=== PATIENT | female | born 1950 | race Caucasian/White ===

== ENCOUNTER → 2019-10-04 | Outpatient (REF) | payer MEDICARE, OTHER | LOC: M LAB LCGH 13:39 | PROVIDERS: ATTEND Nurse Practitioner Family | DX: C44.519 Basal cell carcinoma of skin of other part of trunk (principal) ==

== ENCOUNTER 2019-12-01 11:45 | Day surgery (SDC) | payer MEDICARE, BC, OTHER ==
[~2019-12-01] VITALS: Ht 167.6 cm; Wt 98.9 kg
[~2019-12-01 11:45] MED LIST: CALCTAB41 PO; CLAR10TA7 PO; ESTR1DIS TOP; FLUTISP; GNP1000T11 PO; IBUP-1022 PO; MYRB25TA PO; NON-325T5 PO; NS 1,000 ML IV ONE; OMEP-221 PO; PROP60CA PO; SUMA100T2 PO; VITA500C24 PO
[2019-12-01] MEDS ORDERED: fentaNYL 100 MCG/2 ML INJECTION (J3010) As Ordered ONE (12:18)
[2019-12-01] MEDS ORDERED: LIDOCAINE 2% INJ 100 MG/5 ML SDV (FOR ANES.) As Ordered ONE (12:18)
[2019-12-01] MEDS ORDERED: propofoL 200 MG/20 ML VIAL As Ordered ONE (12:18)
--- NOTE | 2019-12-01 13:22 | ROOR ---
Patient Name: Janie Cameron Procedure Date: 12/01/2019 1:08 PM Date of : 1950 Age: 69 Room: [facility] Gender: Female Note Status: Finalized Procedure: Upper GI endoscopy Indications: Suspected esophageal reflux Providers: Isaiah Smith Jr, MD Referring MD: Wendy Juarez NP Requesting Provider: Medicines: Propofol per Anesthesia Complications: No immediate complications. Procedure: Pre-Anesthesia Assessment: - Prior to the procedure, a History and Physical was performed, and patient medications and allergies were reviewed. The patient is competent. The risks and benefits of the procedure and the sedation options and risks were discussed with the patient. All questions were answered and informed consent was obtained. Patient identification and proposed procedure were verified by the physician and the nurse in the pre-procedure area and in the procedure room. Mental Status Examination: alert and oriented. Airway Examination: normal oropharyngeal airway and neck mobility. Respiratory Examination: clear to auscultation. CV Examination: normal. ASA Grade Assessment: II - A patient with mild systemic disease. After reviewing the risks and benefits, the patient was deemed in satisfactory condition to undergo the procedure. The anesthesia plan was to use moderate sedation / analgesia (conscious sedation). Immediately prior to administration of medications, the patient was re-assessed for adequacy to receive sedatives. The heart rate, respiratory rate, oxygen saturations, blood pressure, adequacy of pulmonary ventilation, and response to care were monitored throughout the procedure. The physical status of the patient was re-assessed after the procedure. The Endoscope was introduced through the mouth, and advanced to the second part of duodenum. The upper GI endoscopy was accomplished without difficulty. The patient tolerated the procedure well. Findings: The upper third of the esophagus, middle third of the esophagus and lower third of the esophagus were normal. The cardia, gastric fundus, gastric body, gastric antrum, prepyloric region of the stomach and pylorus were normal. The duodenal bulb, first portion of the duodenum and second portion of the duodenum were normal. A small hiatal hernia was present. Impression: - Normal upper third of esophagus, middle third of esophagus and lower third of esophagus. - Normal cardia, gastric fundus, gastric body, antrum, prepyloric region of the stomach and pylorus. - Normal duodenal bulb, first portion of the duodenum and second portion of the duodenum. - Small hiatal hernia. - No specimens collected. Recommendation: - Discharge patient to home (ambulatory). - Return to primary care physician as previously scheduled. Isaiah Smith MD Isaiah Smith Jr, MD 12/01/2019 1:22:04 PM Electronically signed by Isaiah Smith Jr, MD Number of Addenda: 0 Note Initiated On: 12/01/2019 1:08 PM Estimated Blood Loss: Estimated blood loss: none.
--- NOTE | 2019-12-01 13:41 | ROOR ---
Patient Name: Janie Cameron Procedure Date: 12/01/2019 1:09 PM Date of : 1950 Age: 69 Room: [facility] Gender: Female Note Status: Finalized Procedure: Colonoscopy Indications: Screening for colorectal malignant neoplasm Providers: Isaiah Smith Jr, MD Referring MD: Wendy Juarez NP Requesting Provider: Medicines: Propofol per Anesthesia Complications: No immediate complications. Procedure: Pre-Anesthesia Assessment: - Prior to the procedure, a History and Physical was performed, and patient medications and allergies were reviewed. The patient is competent. The risks and benefits of the procedure and the sedation options and risks were discussed with the patient. All questions were answered and informed consent was obtained. Patient identification and proposed procedure were verified by the physician and the nurse in the pre-procedure area and in the procedure room. Mental Status Examination: alert and oriented. Airway Examination: normal oropharyngeal airway and neck mobility. Respiratory Examination: clear to auscultation. CV Examination: normal. ASA Grade Assessment: II - A patient with mild systemic disease. After reviewing the risks and benefits, the patient was deemed in satisfactory condition to undergo the procedure. The anesthesia plan was to use moderate sedation / analgesia (conscious sedation). Immediately prior to administration of medications, the patient was re-assessed for adequacy to receive sedatives. The heart rate, respiratory rate, oxygen saturations, blood pressure, adequacy of pulmonary ventilation, and response to care were monitored throughout the procedure. The physical status of the patient was re-assessed after the procedure. The Colonoscope was introduced through the anus and advanced to the cecum, identified by appendiceal orifice and ileocecal valve. The colonoscopy was performed without difficulty. The patient tolerated the procedure well. The quality of the bowel preparation was adequate. Findings: Three polyps were found in the descending colon, transverse colon and ascending colon. The polyps were diminutive in size. These polyps were removed with a cold snare. Resection was complete, but the polyp tissue was only partially retrieved. Multiple small and large-mouthed diverticula were found in the sigmoid colon. Non-bleeding external and internal hemorrhoids were found during endoscopy. The hemorrhoids were Grade II (internal hemorrhoids that prolapse but reduce spontaneously) and Grade III (internal hemorrhoids that prolapse but require manual reduction). The recto-sigmoid colon, descending colon, cecum, appendiceal orifice and ileocecal valve appeared normal. Impression: - Three diminutive polyps in the descending colon, in the transverse colon and in the ascending colon, removed with a cold snare. Complete resection. Partial retrieval. - Diverticulosis in the sigmoid colon. - Non-bleeding external and internal hemorrhoids. - The recto-sigmoid colon, descending colon, cecum, appendiceal orifice and ileocecal valve are normal. Recommendation: - Discharge patient to home (ambulatory). - Repeat colonoscopy in 5 years for surveillance. Isaiah Smith MD Isaiah Smith Jr, MD 12/01/2019 1:41:15 PM Electronically signed by Isaiah Smith Jr, MD Number of Addenda: 0 Note Initiated On: 12/01/2019 1:09 PM Estimated Blood Loss: Estimated blood loss: none.
[2019-12-01 14:00] VITALS: BP 128/92
== END 2019-12-01 14:16 | disposition home or self-care (01) ==
LOC: M OPP 11:45
PROVIDERS: ATTEND Surgery
DX: Z12.11 Encounter for screening for malignant neoplasm of colon (principal); Z80.0 Family history of malignant neoplasm of digestive organs; D12.4 Benign neoplasm of descending colon; D12.3 Benign neoplasm of transverse colon; D12.2 Benign neoplasm of ascending colon; K64.2 Third degree hemorrhoids; K57.30 Diverticulosis of large intestine without perforation or abscess without bleeding; K44.9 Diaphragmatic hernia without obstruction or gangrene; K21.9 Gastro-esophageal reflux disease without esophagitis; Z90.49 Acquired absence of other specified parts of digestive tract; Z87.19 Personal history of other diseases of the digestive system; M19.90 Unspecified osteoarthritis, unspecified site; G43.909 Migraine, unspecified, not intractable, without status migrainosus; Z87.891 Personal history of nicotine dependence; Z88.5 Allergy status to narcotic agent; Z88.1 Allergy status to other antibiotic agents; Z88.0 Allergy status to penicillin; Z88.2 Allergy status to sulfonamides; Z79.899 Other long term (current) drug therapy
CPT/HCPCS: 43235; 45385; 88305; J3010

== ENCOUNTER → 2025-10-03 | Day surgery (SDC) | payer MEDICARE, BC ==
[~2025-10-03] VITALS: Ht 167.6 cm; Wt 93.1 kg
[~2025-10-03] MED LIST changes: +ACET-839 PO; +ACET32TAB PO; +BACL10TA2 PO; +GABA-1171 PO; +GLYCOPYRROLATE INJ 0.2 MG/ML 2 ML VIAL As Ordered ONE; -IBUP-1022 PO; +IBUP600T42 PO; +LIDOCAINE 2% 100 MG/5 ML SDV (FOR ANES.) As Ordered ONE; +MAGN250T6 PO; -NON-325T5 PO; -NS 1,000 ML IV ONE; -OMEP-221 PO; +OMEP40CA5 PO; +PHENYLephrine 500MCG 5ML (100MCG/ML) SYRINGE As Ordered ONE
[2025-10-03 09:52] VITALS: TEMP 99.1
[2025-10-03 10:14] VITALS: BP 125/63; O2SAT 96
== END | disposition home or self-care (01) ==
LOC: M OPP 08:42
PROVIDERS: ATTEND Surgery
DX: Z12.11 Encounter for screening for malignant neoplasm of colon (principal); D12.6 Benign neoplasm of colon, unspecified; K57.30 Diverticulosis of large intestine without perforation or abscess without bleeding; Z80.0 Family history of malignant neoplasm of digestive organs; Z86.0102 Personal history of hyperplastic colon polyps; K44.9 Diaphragmatic hernia without obstruction or gangrene; K29.50 Unspecified chronic gastritis without bleeding; K31.7 Polyp of stomach and duodenum; K31.89 Other diseases of stomach and duodenum; K30 Functional dyspepsia; Z88.0 Allergy status to penicillin; Z88.1 Allergy status to other antibiotic agents; Z88.2 Allergy status to sulfonamides; Z88.5 Allergy status to narcotic agent; Z91.048 Other nonmedicinal substance allergy status; Z79.51 Long term (current) use of inhaled steroids; Z79.899 Other long term (current) drug therapy
CPT/HCPCS: 43239; 45385; 88305; J1596; J2371